=== PATIENT | male | born 1965 | race Caucasian/White ===

== ENCOUNTER → 2016-09-03 | Outpatient (CLI) | payer OTHER | LOC: SBRMNEURO 21:00 | PROVIDERS: ATTEND Internal Medicine Pulmonary Disease | DX: G47.33 Obstructive sleep apnea (adult) (pediatric) (principal); G47.36 Sleep related hypoventilation in conditions classified elsewhere ==

== ENCOUNTER → 2018-07-23 | Outpatient (CLI) | payer OTHER | LOC: BRMIMAGING 16:39 | PROVIDERS: ATTEND Family Medicine | DX: I51.7 Cardiomegaly (principal); J98.4 Other disorders of lung | CPT/HCPCS: 71046-PO ==